=== PATIENT | male | born 1985 | race Caucasian/White ===

== ENCOUNTER 2019-08-05 21:57 | Emergency (ER) | payer BC ==
[2019-08-05] MEDS ORDERED: ALPRAZolam 1 MG Tab PO ONE (22:50)
--- NOTE | 2019-08-05 22:57 | EDM.PDOC ---
ED HPI GENERAL MEDICAL PROBLEM - General Chief Complaint: Behavioral/Psych Stated Complaint: PANIC ATTACKS PTSD Time Seen by Provider: 08/05/19 22:35 Source of Information: Reports: Patient, Old Records (2 visits from [facility] 08/02 and 08/03.), RN Notes Reviewed History Limitations: Reports: No Limitations - History of Present Illness INITIAL COMMENTS - FREE TEXT/NARRATIVE: Patient is a 33-year-old male who presents to the ED for the evaluation of panic attacks and his PTSD. He states that he developed PTSD after his service, he states that these are bad roughly for around 6 months but eventually got better. 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 He does have an appointment to see a provider [facility] [place] on Wednesday, and states he was seen at the [place] [facility] both on 08/02 and 08/03, he was given Ativan at the first visit, and subsequently Klonopin at the second visit, he states that he developed hives from both of these medications, he states that he tried taking Benadryl with both of these however this did not help the hives. He subsequently returned these to the [facility] in [place]. He has no medications at home for his acute anxiety. He states that when his anxiety is at its worse, he does try breathing techniques, he feels that he cannot breathe his mind starts racing , he feels anxious and starts pacing the room, and believes that he is going to . He states that he roughly had a panic attack 3 hours ago. He denies any other sick-like symptoms, fever/chills, shortness of breath, chest pain. He states that he is away from his family, and they reside in [place]. - Related Data Allergies Allergy/AdvReac Type Severity Reaction Status Date / Time lorazepam [From Ativan] Allergy Hives Verified 08/05/19 22:36 Home Meds: Home Meds ALPRAZolam [Alprazolam] 1 mg PO TID #12 tablet 08/05/19 [Rx] Past Medical History Psychiatric History: Reports: Anxiety, PTSD Social & Family History - Family History Family Medical History: Noncontributory - Tobacco Use Smoking Status *Q: Never Smoker - Caffeine Use Caffeine Use: Reports: None - Recreational Drug Use Recreational Drug Use: No ED ROS GENERAL - Review of Systems Review Of Systems: Comprehensive ROS is negative, except as noted in HPI. Psychiatric: Reports: Anxiety, Other (PTSD). Denies: Depression, Hallucinations , Homicidal Ideation, Suicidal Ideation ED EXAM, GENERAL - Physical Exam Exam: See Below Exam Limited By: No Limitations General Appearance: Alert, WD/WN, No Apparent Distress Eye Exam: Bilateral Eye: EOMI, Normal Inspection, PERRL Throat/Mouth: Normal Inspection, Normal Lips, Normal Teeth, Normal Gums, Normal Oropharynx, Normal Voice, No Airway Compromise Head: Atraumatic, Normocephalic Neck: Normal Inspection Respiratory/Chest: No Respiratory Distress, Lungs Clear, Normal Breath Sounds, No Accessory Muscle Use, Chest Non-Tender Cardiovascular: Normal Peripheral Pulses, Regular Rate, Rhythm, No Murmur GI/Abdominal: Normal Bowel Sounds, Soft, Non-Tender, No Distention, No Mass Extremities: Normal Inspection, Normal Capillary Refill Neurological: Alert, Oriented, Normal Cognition, No Motor/Sensory Deficits Psychiatric: Normal Affect, Normal Mood, Anxious (pt is pacing the room when I started to examine him) Skin Exam: Warm, Intact, Normal Color, No Rash Course - Vital Signs Last Recorded V/S: Last Vital Signs Temp 98.4 F 08/05/19 22:35 Pulse 99 08/05/19 22:35 Resp 16 08/05/19 22:35 BP 165/101 H 08/05/19 22:35 Pulse Ox 97 08/05/19 22:35 - Orders/Labs/Meds Meds: Medications Discontinued Medications Generic Name Dose Route Start Last Admin Trade Name Tino PRN Reason Stop Dose Admin Alprazolam 1 mg 08/05/19 22:50 08/05/19 22:58 Xanax PO 08/05/19 22:51 1 mg ONETIME ONE Administration - Re-Assessments/Exams Free Text/Narrative Re-Assessment/Exam: 08/05/19 23:01 Patient presents to the ED for the evaluation of anxiety and his PTSD. After an extensive discussion with this patient, and discussing his 2 previous visits from the 2 providers in [place]. I will provide him with 1 tablet of alprazolam for tonight use, and will get him a few tablets to get him through to Wednesday until he can be seen by the provider at the [facility]. I did discuss with him the importance of him to follow-up with the [facility], he verbalizes understanding. I do believe that he returned the medications back to the [facility] pharmacy however at this time there is no chance to actually verify this information. I did check [employer], and it does appear that he had filled a prescription for 9 tablets from the [facility] pharmacy on 08/03/2019. Departure - Departure Time of Disposition: 22:55 Disposition: Home, Self-Care 01 Condition: Fair Clinical Impression: Panic attack, PTSD (post-traumatic stress disorder) - Discharge Information *PRESCRIPTION DRUG MONITORING PROGRAM REVIEWED*: Yes *COPY OF PRESCRIPTION DRUG MONITORING REPORT IN PATIENT STEPHANIE: No Prescriptions: ALPRAZolam [Alprazolam] 1 mg PO TID #12 tablet Instructions: Panic Attack, [id number] Referrals: Joanne Barr MD [Primary Care Provider] - Forms: ED Department Discharge Additional Instructions: You were evaluated in the ER today regarding your panic attacks. After discussing options with you, you have been given a prescription for Xanax (alprazolam) 1 mg tablets 3 times daily as needed for panic attacks. You were given 1 tablet to take home for use tonight or tomorrow morning. The prescription was electronically prescribed to the [facility] pharmacy located near [facility] at [address] in [facility]. This pharmacy is open only from 12- tomorrow, 08/06/2019. 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 It is extremely important that you follow-up with your provider at the [facility] on Wednesday, as they will need to refill the prescriptions if they are deemed necessary for your anxiety treatment. Please return to the ER at any time however if your symptoms change or worsen. Sepsis Event Note - Evaluation Sepsis Screening Result: No Definite Risk - Focused Exam Date Exam was Performed: 08/07/19 Time Exam was Performed: 23:18
== END 2019-08-05 22:59 | disposition home or self-care (01) ==
LOC: JD.ED 21:57
DX: F41.0 Panic disorder [episodic paroxysmal anxiety] (principal); F43.10 Post-traumatic stress disorder, unspecified; Z88.8 Allergy status to other drugs, medicaments and biological substances
CPT/HCPCS: 99283; A9270

== ENCOUNTER 2019-08-19 12:36 | Emergency (ER) | payer BC ==
--- NOTE | 2019-08-19 13:11 | EDM.PDOCBH ---
ED HPI GENERAL MEDICAL PROBLEM - General Chief Complaint: Behavioral/Psych Stated Complaint: MEDS FOR PANIC ATTACKS NOT WORKING Time Seen by Provider: 08/19/19 12:51 Source of Information: Reports: Patient History Limitations: Reports: No Limitations - History of Present Illness INITIAL COMMENTS - FREE TEXT/NARRATIVE: Patient is a 34-year-old male who presents with complaints of chronic anxiety related to PTSD. Patient states that he suffered from significant anxiety and panic attacks after his service which was about 7 years ago. He states for number of years the symptoms resolved, however, recently the symptoms have returned. He states he is having at this time a panic attack every couple hours. His panic attacks last about 15-20 minutes and consist of hyperventilation and tremors. His last panic attack was immediately prior to coming to the ER. he was seen in this ER earlier this month and provided a short prescription for Xanax. Patient states that he did see Dr. Bruce this last Wednesday and was started on Prozac. She did offer to refill his Xanax, however he didn't think he would need it so he declined the offer. He states that he does not want to take the Xanax because it makes him tited, however the Prozac is not working for him. Patient states that he has an appointment with [facility] this . He denies any suicidal or homicidal thoughts. - Related Data Allergies Allergy/AdvReac Type Severity Reaction Status Date / Time lorazepam [From Ativan] Allergy Hives Verified 08/19/19 12:50 Home Meds: Home Meds ALPRAZolam [Alprazolam] 1 mg PO TID #12 tablet 08/05/19 [Rx] ALPRAZolam [Xanax] 1 mg PO TID PRN #18 tablet 08/19/19 [Rx] Past Medical History HEENT History: Reports: None Cardiovascular History: Reports: None Respiratory History: Reports: None Gastrointestinal History: Reports: None Genitourinary History: Reports: None Musculoskeletal History: Reports: None Neurological History: Reports: None Psychiatric History: Reports: Anxiety, PTSD Endocrine/Metabolic History: Reports: None Hematologic History: Reports: None Immunologic History: Reports: None Oncologic (Cancer) History: Reports: None Dermatologic History: Reports: None - Infectious Disease History Infectious Disease History: Reports: None Social & Family History - Family History Family Medical History: Noncontributory - Tobacco Use Smoking Status *Q: Never Smoker - Caffeine Use Caffeine Use: Reports: Coffee - Recreational Drug Use Recreational Drug Use: No ED ROS GENERAL - Review of Systems Review Of Systems: Comprehensive ROS is negative, except as noted in HPI. ED EXAM, BEHAVIORAL HEALTH - Physical Exam Exam: See Below Exam Limited By: No Limitations General Appearance: Alert, WD/WN, Anxious Respiratory/Chest: No Respiratory Distress, Lungs Clear, Normal Breath Sounds, No Accessory Muscle Use, Chest Non-Tender Cardiovascular: Normal Peripheral Pulses, Regular Rate, Rhythm, No Edema, No Gallop, No JVD, No Murmur, No Rub Neurological: Alert, Normal Mood/Affect, CN II-XII Intact, Normal Cognition, Normal Gait, Normal Reflexes, No Motor/Sensory Deficits, Oriented x 3 Psychiatric: Alert, Oriented, Other (slightly tremoring and visibly anxious. Cooperative.). No: Suicidal Thoughts Skin Exam: Warm, Dry, Intact, Normal color, No rash COURSE, BEHAVIORAL HEALTH COMP - Course Vital Signs: Last Vital Signs Temp 98.7 F 08/19/19 12:48 Pulse 122 H 08/19/19 12:48 Resp 16 08/19/19 12:48 BP 157/92 H 08/19/19 12:48 Pulse Ox 99 08/19/19 12:48 Re-Assessment/Re-Exam: on exam, patient is cooperative but visibly anxious and slightly tremoring. He states that he saw Dr. Bruce on Wednesday and was started on Prozac. I did discuss with him that it takes 3-4 weeks for Prozac to become effective and that occasionally during that period of adjustment, his symptoms may actually worsen before getting better. He states that he was not aware of this and that if he would've known he would have accepted the offer for the refill on his Xanax until the medication started working. I will write him a prescription for Xanax 1 mg 3 times a day when necessary with enough tabs to get him through until he sees the [facility] on . I did discuss with him that he will likely need this medication at least for the next couple weeks until the Prozac starts working for him, but that it is important for him to follow-up with the [facility] clinic as scheduled on . Discharge instructions as noted. Departure - Departure Time of Disposition: 13:15 Disposition: Home, Self-Care 01 Condition: Fair Clinical Impression: Panic disorder, Anxiety - Discharge Information *PRESCRIPTION DRUG MONITORING PROGRAM REVIEWED*: Yes *COPY OF PRESCRIPTION DRUG MONITORING REPORT IN PATIENT STEPHANIE: No Prescriptions: ALPRAZolam [Xanax] 1 mg PO TID PRN #18 tablet PRN Reason: Anxiety Instructions: Panic Attack, [id number] Referrals: Saloni Bruce MD [Primary Care Provider] - Forms: ED Department Discharge Additional Instructions: You were seen in the emergency department today for recurrent panic attacks. As we discussed, it will take 3-4 weeks for the [facility] that you started this last Wednesday to start working for you. During this transition period, you may continue to have anxiety and panic attacks, however, this should eventually improve as the medication starts taking effect. I have sent a prescription for Xanax 1 mg 3 times daily as needed for anxiety and panic attacks to [facility]. You have been provided with enough tablets to get you through until your appointment on with the [facility]. I recommend that you keep this appointment to discuss ongoing treatment of your anxiety and panic attacks. If you should experience any new or worsening symptoms, please do not hesitate to return to the emergency department. Sepsis Event Note - Evaluation Sepsis Screening Result: No Definite Risk - Focused Exam Vital Signs: Vital Signs Temp Pulse Resp BP Pulse Ox 08/19/19 12:48 98.7 F 122 H 16 157/92 H 99 Date Exam was Performed: 08/19/19 Time Exam was Performed: 16:31
== END 2019-08-19 13:27 | disposition home or self-care (01) ==
LOC: JD.ED 12:36
DX: F41.0 Panic disorder [episodic paroxysmal anxiety] (principal); Z88.8 Allergy status to other drugs, medicaments and biological substances; Z79.899 Other long term (current) drug therapy
CPT/HCPCS: 99283

== ENCOUNTER 2019-09-10 17:46 | Emergency (ER) | payer SELFPAY ==
[2019-09-10] MEDS ORDERED: ALPRAZolam 1 MG Tab PO ONE (18:11)
--- NOTE | 2019-09-10 18:16 | EDM.PDOCBH ---
ED HPI GENERAL MEDICAL PROBLEM - General Chief Complaint: Behavioral/Psych Stated Complaint: PANIC ATTACK Time Seen by Provider: 09/10/19 17:58 Source of Information: Reports: Patient History Limitations: Reports: No Limitations - History of Present Illness INITIAL COMMENTS - FREE TEXT/NARRATIVE: Patient is a 34-year-old male who presents with complaints of frequent panic attacks. He has PTSD related to his service. After he got out of the service he had similar episodes, however he was free from symptoms for about 7 years. A few months back, he started having the panic attacks again. I saw him in this ER on 11 August for similar complaints. At that time he had just been started on Prozac by Dr. Bruce. He states since that time he has still had some intermittent anxiety attacks but has not needed more Xanax than I had initially prescribed him on that date. He saw Dr. Bruce last week and his dose of Prozac was increased to 30 mg twice daily. She offered to refill his Xanax stating that he may need to be on that long-term, however he declined because he still had 4 or 5 tabs left that I had filled for him. He he is now out of the Xanax, however he continues to have these panic attacks about twice a day. His symptoms have caused him to miss work. States he does not like to take the Xanax because it makes him sleepy, however there are times it he cannot function without it. [facility] and he has been advised that they will be able to write prescriptions as well. He denies any homicidal or suicidal ideation. - Related Data Allergies Allergy/AdvReac Type Severity Reaction Status Date / Time lorazepam [From Ativan] Allergy Hives Verified 09/10/19 18:00 Home Meds: Home Meds ALPRAZolam [Xanax] 1 mg PO TID PRN #18 tablet 09/10/19 [Rx] FLUoxetine HCl [Prozac] 30 mg PO BID 09/10/19 [History] Past Medical History - Past Health History Medical/Surgical History: Denies Medical/Surgical History HEENT History: Reports: None Cardiovascular History: Reports: None Respiratory History: Reports: None Gastrointestinal History: Reports: None Genitourinary History: Reports: None Musculoskeletal History: Reports: None Neurological History: Reports: None Psychiatric History: Reports: Anxiety, Panic Attack, PTSD Endocrine/Metabolic History: Reports: None Hematologic History: Reports: None Immunologic History: Reports: None Oncologic (Cancer) History: Reports: None Dermatologic History: Reports: None - Infectious Disease History Infectious Disease History: Reports: None Social & Family History - Family History Family Medical History: Noncontributory - Tobacco Use Smoking Status *Q: Never Smoker - Caffeine Use Caffeine Use: Reports: None - Recreational Drug Use Recreational Drug Use: No ED ROS GENERAL - Review of Systems Review Of Systems: Comprehensive ROS is negative, except as noted in HPI. ED EXAM, BEHAVIORAL HEALTH - Physical Exam Exam: See Below Exam Limited By: No Limitations General Appearance: Alert, WD/WN, Anxious Respiratory/Chest: No Respiratory Distress, Lungs Clear, Normal Breath Sounds, No Accessory Muscle Use, Chest Non-Tender Cardiovascular: Normal Peripheral Pulses, Regular Rate, Rhythm, No Edema, No Gallop, No JVD, No Murmur, No Rub Neurological: Alert, Normal Mood/Affect, CN II-XII Intact, Normal Cognition, Normal Gait, Normal Reflexes, No Motor/Sensory Deficits, Oriented x 3 Psychiatric: Alert, Normal Affect, Normal Cognition, Normal Mood, Oriented Skin Exam: Warm, Dry, Intact, Normal color, No rash COURSE, BEHAVIORAL HEALTH COMP - Course Vital Signs: Last Vital Signs Temp 98.6 F 09/10/19 17:57 Pulse 100 09/10/19 17:57 Resp 15 09/10/19 17:57 BP 164/96 H 09/10/19 17:57 Pulse Ox 100 09/10/19 17:57 Orders, Labs, Meds: Active Orders 24 hr Category Date Time Status ALPRAZolam [Xanax] Med 09/10/19 18:11 Once 1 mg PO ONETIME ONE Medication Orders Alprazolam (Xanax) 1 mg PO ONETIME ONE Stop: 09/10/19 18:12 Medications Generic Name Dose Route Start Last Admin Trade Name Freq PRN Reason Stop Dose Admin Alprazolam 1 mg 09/10/19 18:11 Xanax PO 09/10/19 18:12 ONETIME ONE Re-Assessment/Re-Exam: Patient presents with complaints of daily panic attacks. He has been gradually increasing his dose of Prozac, however continues to have breakthrough symptoms. Discussed with him that while his medications are being titrated until he becomes a therapeutic level, it would be beneficial for him to have Xanax on hand. Told him that he should only use the medication when he has 1 of the acute attacks. Patient does not want to be on Xanax long-term. I discussed with him that ideally he should find that he has to use them less and less as his long-term medications begin to work. I will give him Xanax 1 mg p.o. while in the emergency department today. I have also provided a prescription for 18 tabs to be used 3 times a day as needed for acute anxiety attacks. Discharge instructions as documented. Departure - Departure Time of Disposition: 18:18 Disposition: Home, Self-Care 01 Condition: Fair Clinical Impression: Panic disorder - Discharge Information *PRESCRIPTION DRUG MONITORING PROGRAM REVIEWED*: Yes *COPY OF PRESCRIPTION DRUG MONITORING REPORT IN PATIENT STEPHANIE: No Prescriptions: ALPRAZolam [Xanax] 1 mg PO TID PRN #18 tablet PRN Reason: Anxiety Instructions: Panic Attack, [id number], Living With Anxiety Referrals: Saloni Bruce MD [Primary Care Provider] - Additional Instructions: You were seen in the emergency department for daily panic attacks. As we discussed, you may need to continue to use Xanax as needed for breakthrough anxiety until your daily, long-term medications reach a therapeutic level. I would recommend that you keep Xanax on hand for use as needed, and ideally you will find that as time goes on you will need to use them less and less. You were given 1 tablet of Xanax 1 mg while in the emergency department today. A prescription has been written for additional Xanax to get you through until [facility]. Use this medication as prescribed as needed for anxiety. Do not drive or operate heavy machinery after taking this medication. If you should experience any worsening symptoms, please do not hesitate to return to the emergency department. Sepsis Event Note - Evaluation Sepsis Screening Result: No Definite Risk - Focused Exam Vital Signs: Vital Signs Temp Pulse Resp BP Pulse Ox 09/10/19 17:57 98.6 F 100 15 164/96 H 100 Date Exam was Performed: 09/10/19 Time Exam was Performed: 18:11 - My Orders Last 24 Hours: My Active Orders 09/10/19 18:11 ALPRAZolam [Xanax] 1 mg PO ONETIME ONE - Assessment/Plan Last 24 Hours: My Active Orders 09/10/19 18:11 ALPRAZolam [Xanax] 1 mg PO ONETIME ONE
== END 2019-09-10 18:31 | disposition home or self-care (01) ==
LOC: JD.ED 17:46
DX: F41.0 Panic disorder [episodic paroxysmal anxiety] (principal); F41.9 Anxiety disorder, unspecified; F43.10 Post-traumatic stress disorder, unspecified; Z88.8 Allergy status to other drugs, medicaments and biological substances; Z79.899 Other long term (current) drug therapy
CPT/HCPCS: 99283; A9270

== ENCOUNTER 2019-09-18 01:47 | Emergency (ER) | payer SELFPAY ==
[2019-09-18] MEDS ORDERED: ALPRAZolam 1 MG Tab PO ONE (02:20)
--- NOTE | 2019-09-18 02:24 | EDM.PDOCBH ---
ED HPI GENERAL MEDICAL PROBLEM - General Chief Complaint: Behavioral/Psych Stated Complaint: PANIC ATTACKS WORSE WITH MEDS Time Seen by Provider: 09/18/19 02:18 Source of Information: Reports: Patient History Limitations: Reports: No Limitations - History of Present Illness INITIAL COMMENTS - FREE TEXT/NARRATIVE: 34-year-old male presents to the ED with generalized anxiety disorder and recurrent panic attacks for the last several weeks. 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 He did 2 tours in [place] and one in [place] and when he got back to [place] he started to have symptoms of posttraumatic stress disorder and started to suffer from severe panic attacks. These were particularly bad about 5 years ago and he went on medication which was Xanax 2 mg twice daily and Prozac 90 mg once daily for period of about a year and a half and then his symptoms abated and he was able to get off medication. Unfortunately symptoms of panic disorder and anxiety started to come back about 2 and half months ago and have been getting worse. He has been seen by multitude of physicians including a couple of visits to the ED in this regard. He has followed up with the [facility] physician as well. One has been reluctant to return him to his previous dose of Xanax out of fear of addiction to the medication. He states that the current dose of Xanax that he is on which he ran out of yesterday is not effective. Was taking 1 mg 3 times daily and his Prozac dose has been recently increased. He has an appointment to follow-up with his [facility] physician in [place] where he is from in about 10 days time. He works 3 months on and then has a month off. His month off starts next week Wednesday. But unable to sleep tonight due to generalized anxiety. Panic attacks are that of feeling his heart racing a sense of doom with a pressure in his throat and sometimes chest pains. He also feels tremulous throughout his body. He has had no nausea vomiting or diarrhea. Onset: Unknown/Unsure (Has been having gradually worsening symptoms of generalized anxiety disorder with panic attacks for last 2 and half months.) Onset Date: 07/04/19 (He believes his symptoms started back in early June.) Duration: Week(s):, Getting Worse Location: Reports: Generalized Quality: Reports: Other (Her present illness current panic attacks and generalized anxiety disorder with sleep disruption and inability to sometimes function in the workplace) Severity: Moderate Improves with: Reports: Other (Xanax helps for the most part bring it under control.) Worsens with: Reports: Other (Stressful environment) Context: Reports: Other. Denies: Activity, Exercise, Lifting, Sick Contact, Trauma Associated Symptoms: Reports: Chest Pain, Diaphoresis, Loss of Appetite, Malaise , Shortness of Breath, Weakness, Other (Sense of doom with pressure in the throat and palpitations). Denies: Confusion, Cough (Times chest pains), cough w sputum, Fever/Chills, Headaches, Nausea/Vomiting (Sometimes diaphoresis), Rash , Seizure, Syncope Treatments EMTS: Reports: Other (see below) (Has been taking a gradually increasing dose of Prozac and is currently up to 90 mg daily. He has been taking alprazolam 1 mg 3 times daily without good relief.) - Related Data Allergies Allergy/AdvReac Type Severity Reaction Status Date / Time lorazepam [From Ativan] Allergy Hives Verified 09/18/19 01:55 Home Meds: Home Meds ALPRAZolam [Xanax] 1 mg PO TID PRN #18 tablet 09/10/19 [Rx] FLUoxetine HCl [Prozac] 90 mg PO DAILY 09/10/19 [History] ALPRAZolam [Xanax] 2 mg PO BID #60 tablet 09/18/19 [Rx] Past Medical History - Past Health History Medical/Surgical History: Denies Medical/Surgical History HEENT History: Reports: None Cardiovascular History: Reports: None Respiratory History: Reports: None Gastrointestinal History: Reports: None Genitourinary History: Reports: None Musculoskeletal History: Reports: None Neurological History: Reports: None Psychiatric History: Reports: Anxiety (Neurolysed anxiety disorder.), Panic Attack, PTSD, Other (See Below) (Patient is an [place] vet) Endocrine/Metabolic History: Reports: None Hematologic History: Reports: None Immunologic History: Reports: None Oncologic (Cancer) History: Reports: None Dermatologic History: Reports: None - Infectious Disease History Infectious Disease History: Reports: None Social & Family History - Family History Family Medical History: Noncontributory - Tobacco Use Smoking Status *Q: Never Smoker - Caffeine Use Caffeine Use: Reports: None - Recreational Drug Use Recreational Drug Use: No - Living Situation & Occupation Living situation: Reports: Occupation: Employed ED ROS GENERAL - Review of Systems Review Of Systems: See Below Constitutional: Reports: Malaise, Weakness, Fatigue, Decreased Appetite (Not being able to sleep). Denies: Fever, Chills HEENT: Reports: No Symptoms Respiratory: Reports: Shortness of Breath. Denies: Wheezing, Pleuritic Chest Pain, Cough, Sputum, Hemoptysis Cardiovascular: Reports: Chest Pain (Central chest pains), Blood Pressure Problem, Lightheadedness (.), Palpitations. Denies: Claudication (Pressure goes up when he is anxious.), Orthopnea Endocrine: Reports: Fatigue GI/Abdominal: Reports: Decreased Appetite : Reports: No Symptoms Musculoskeletal: Reports: Back Pain Skin: Reports: No Symptoms Neurological: Reports: Dizziness (Sometimes occurs with panic attack), Paresthesia, Tremors (Times numbness and tingling in his upper extremities and periorally.) Psychiatric: Reports: Anxiety, Other Hematologic/Lymphatic: Reports: No Symptoms (Acutely disrupted sleep pattern) Immunologic: Reports: No Symptoms ED EXAM, BEHAVIORAL HEALTH - Physical Exam Exam: See Below Exam Limited By: No Limitations General Appearance: Alert, WD/WN, Anxious (Very anxious at the time I seen him.) , Moderate Distress, Other (Temperature is 36.8. Heart rate was 102 and sinus respiratory 16 O2 sats are 99% on room air. BP is 140/99) Eye Exam: Bilateral Eye: Normal Inspection Throat/Mouth: Normal Inspection, Normal Lips, Normal Oropharynx, Other Head: Atraumatic, Normocephalic Neck: Normal Inspection, Supple, Non-Tender, Full Range of Motion. No: Lymphadenopathy (L), Lymphadenopathy (R) Respiratory/Chest: No Respiratory Distress, Lungs Clear, Normal Breath Sounds, No Accessory Muscle Use Cardiovascular: Regular Rate, Rhythm (Mild tachycardia.), No Edema, No Gallop, No JVD, No Murmur, No Rub, Tachycardia GI/Abdominal: Normal Bowel Sounds, Soft, Non-Tender, No Organomegaly, No Abnormal Bruit, No Mass, Pelvis Stable Back Exam: Normal Inspection, Full Range of Motion. No: CVA Tenderness (L), CVA Tenderness (R) Extremities: Normal Inspection, Normal Range of Motion, Non-Tender, No Pedal Edema Neurological: Alert, CN II-XII Intact, Normal Cognition, Normal Gait, No Motor/ Sensory Deficits, Oriented x 3. No: Normal Mood/Affect (Anxious) Psychiatric: Alert, Normal Cognition, Oriented, Restless, Other. No: Normal Mood, Uncooperative, Withdrawn, Flight of Ideas, Homicidal Thoughts, Phobic, Suicidal Plan, Suicidal Thoughts, Tangential Thoughts, Auditory Hallucinations, Visual Hallucinations, Grandiose Thoughts, Pressured Speech Skin Exam: Warm (Very anxious.), Dry, Intact, Normal color, No rash COURSE, BEHAVIORAL HEALTH COMP - Course Vital Signs: Last Vital Signs Temp 36.8 C 09/18/19 01:53 Pulse 102 H 09/18/19 01:53 Resp 16 09/18/19 01:53 BP 140/99 H 09/18/19 01:53 Pulse Ox 99 09/18/19 01:53 Orders, Labs, Meds: Medications Discontinued Medications Generic Name Dose Route Start Last Admin Trade Name Freq PRN Reason Stop Dose Admin Alprazolam 2 mg 09/18/19 02:20 09/18/19 02:31 Xanax PO 09/18/19 02:21 2 mg ONETIME ONE Administration Re-Assessment/Re-Exam: 34-year-old male presents to the ED due to signs and symptoms of generalized anxiety disorder and disrupted sleep pattern. Patient has PTSD from being a vet doing 2 tours in [place] and 1 tour in [place] in his younger years. When he returned home he developed signs and symptoms of posttraumatic stress disorder and with generalized anxiety disorder with panic attacks. 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 He works 3 months on and then gets off for 1 month. He started having symptoms of generalized anxiety with panic attacks in the early part of June and has been struggling with his symptoms gradually worsening over time. He had a similar occurrence over 5 years ago and was on Prozac 90 mg daily and Xanax 2 mg in the morning and 2 mg at bedtime with good relief of symptoms and after about a year and a half his symptoms went away. He enjoyed about a 5-year reprieve from symptoms until they returned last June. Is having trouble getting placed back on the higher dose of Xanax due to fear of addiction potential. He ran out of Xanax yesterday and he was taking 1 mg 3 times daily but feels it is not enough and he is not able to relax enough to sleep which is interfering with his ability to work. He takes 2 mg first thing in the morning when anxiety symptoms usually are the worst and then 2 mg at bedtime to ensure a good night sleep. The plan is to return him to the 2 mg twice daily dosing of Xanax and he is already on 90 mg of Prozac. I will write him a prescription for a month supply and he will be given 2 mg of Xanax now so that he may get some sleep tonight. He does not work today but does work tomorrow. He will be off his 3-month work deployment in another week and will be going back to [place] and has already arranged to see his previous doctor at the [facility] in [place]. Departure - Departure Time of Disposition: 02:21 Disposition: Home, Self-Care 01 Condition: Fair Clinical Impression: Panic attacks, PTSD (post-traumatic stress disorder) - Discharge Information *PRESCRIPTION DRUG MONITORING PROGRAM REVIEWED*: Not Applicable *COPY OF PRESCRIPTION DRUG MONITORING REPORT IN PATIENT STEPHANIE: Not Applicable Prescriptions: ALPRAZolam [Xanax] 2 mg PO BID #60 tablet Referrals: Joanne Barr MD [Primary Care Provider] - Forms: ED Department Discharge Additional Instructions: Evaluation in the emergency room tonight in regards to inability to sleep due to generalized anxiety and recurrent panic attacks which have been going on for several now. You had a previous similar bout of panic attacks associated with PTSD 5 years ago which was treated similarly with high-dose Xanax 2 mg first in the morning and bedtime to aid sleep and Prozac 90 mg daily. I certainly agree with return to that treatment plan as it was certainly effective for you. Therefore written a prescription for Xanax 2 mg twice daily for the next month. Given 2 mg of Xanax in the ED tonight so that you might get some sleep. It takes a good hour to start to work well. Sepsis Event Note - Evaluation Sepsis Screening Result: No Definite Risk - Focused Exam Vital Signs: Vital Signs Temp Pulse Resp BP Pulse Ox 09/18/19 01:53 36.8 C 102 H 16 140/99 H 99 Date Exam was Performed: 09/18/19 Time Exam was Performed: 02:33
== END 2019-09-18 02:37 | disposition home or self-care (01) ==
LOC: JD.ED 01:47
DX: F41.0 Panic disorder [episodic paroxysmal anxiety] (principal); F43.10 Post-traumatic stress disorder, unspecified; Z88.8 Allergy status to other drugs, medicaments and biological substances; Z79.899 Other long term (current) drug therapy
CPT/HCPCS: 99283; A9270

== ENCOUNTER 2019-10-14 16:29 | Emergency (ER) | payer SELFPAY ==
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
== END 2019-10-14 17:18 | disposition home or self-care (01) ==
LOC: JD.ED 16:29
DX: F41.9 Anxiety disorder, unspecified (principal); F32.9 Major depressive disorder, single episode, unspecified; Z76.0 Encounter for issue of repeat prescription; Z88.0 Allergy status to penicillin
CPT/HCPCS: 99281; 99282

== ENCOUNTER 2019-10-23 20:04 | Emergency (ER) | payer SELFPAY ==
--- NOTE | 2019-10-23 20:33 | EDM.PDOC ---
ED HPI GENERAL MEDICAL PROBLEM - General Chief Complaint: General Stated Complaint: NEED MEDS REFILL Time Seen by Provider: 10/23/19 20:18 Source of Information: Reports: Patient History Limitations: Reports: No Limitations - History of Present Illness INITIAL COMMENTS - FREE TEXT/NARRATIVE: Patient is a 34-year-old male who presents to the emergency department with request for medication refill. He has an extensive history of anxiety, depression, with PTSD related to his service. He has been seen in our emergency department on a number of occasions with similar requests. The most recent one was approximately 10 days ago. After that visit his plan was to follow-up with the [facility] in [place] as that is where he lives. He states that when he was home on his leave he attempted to go to an appointment [facility] but was told that they had much sicker patients to deal with with a Covid19 pandemic and that they were unable to see him. His then got him in with a different provider who took him off of his Prozac and recommended that he use marijuana. He was reluctant to do so because he has never used drugs and does not want to start. After this the provider told him to stay off his Prozac and started him on Atarax 25 mg every 6 hours. Patient stated that he tried this and within a couple days his anxiety attacks returned. He has since put himself back on the Prozac which she states does help, however without the Xanax that he was taking previously he still has the panic attacks. He is trying to find a provider locally that would be able to manage his anxiety on an ongoing basis, but states that he was not sure where he should go. - Related Data Allergies Allergy/AdvReac Type Severity Reaction Status Date / Time lorazepam [From Ativan] Allergy Hives Verified 10/14/19 16:42 Home Meds: Home Meds FLUoxetine HCl [Prozac] 90 mg PO DAILY 09/10/19 [History] ALPRAZolam 2 mg PO BID 10/23/19 [History] ALPRAZolam [Xanax] 2 mg PO BID #20 tablet 10/23/19 [Rx] Past Medical History - Past Health History Medical/Surgical History: Denies Medical/Surgical History HEENT History: Reports: None Cardiovascular History: Reports: None Respiratory History: Reports: None Gastrointestinal History: Reports: None Genitourinary History: Reports: None Musculoskeletal History: Reports: None Neurological History: Reports: None Psychiatric History: Reports: Anxiety, Panic Attack, PTSD, Other (See Below) Endocrine/Metabolic History: Reports: None Hematologic History: Reports: None Immunologic History: Reports: None Oncologic (Cancer) History: Reports: None Dermatologic History: Reports: None - Infectious Disease History Infectious Disease History: Reports: None Social & Family History - Family History Family Medical History: Noncontributory - Caffeine Use Caffeine Use: Reports: None - Living Situation & Occupation Living situation: Reports: Occupation: Employed ED ROS GENERAL - Review of Systems Review Of Systems: Comprehensive ROS is negative, except as noted in HPI. ED EXAM, GENERAL - Physical Exam Exam: See Below Exam Limited By: No Limitations General Appearance: Alert, WD/WN, No Apparent Distress Respiratory/Chest: No Respiratory Distress, Lungs Clear, Normal Breath Sounds, No Accessory Muscle Use, Chest Non-Tender Cardiovascular: Normal Peripheral Pulses, Regular Rate, Rhythm, No Edema, No Gallop, No JVD, No Murmur, No Rub Neurological: Alert, Oriented, CN II-XII Intact, Normal Cognition, Normal Gait, Normal Reflexes, No Motor/Sensory Deficits Psychiatric: Normal Affect, Normal Mood Skin Exam: Warm, Dry, Intact, Normal Color, No Rash Course - Vital Signs Last Recorded V/S: Last Vital Signs Temp 98.4 F 10/23/19 20:24 Pulse 120 H 10/23/19 20:24 Resp 20 10/23/19 20:24 BP 142/92 H 10/23/19 20:24 Pulse Ox 99 10/23/19 20:24 - Re-Assessments/Exams Free Text/Narrative Re-Assessment/Exam: 10/23/19 20:51 I had a long discussion with the patient with regards to his panic disorders and the importance of having a primary care provider with ongoing follow-up. Discussed that in the emergency department we cannot habitually refill medications. He requested information on how he can set up an appointment with somebody in our facility for ongoing management. I do believe that the patient does have a panic disorder and based on the FEATH[employer] MIXER it does not appear that he has been abusing his Xanax. I advised that I will give him a 10-day refill of his Xanax, but that from there he would need to follow-up in the clinic for ongoing management and medication refills. I provided him with a list of our clinic providers as well as the phone number to call tomorrow morning to schedule an appointment. He is in agreement with this plan and states that he will call first thing in the morning to set up an appointment. Departure - Departure Time of Disposition: 20:54 Disposition: Home, Self-Care 01 Condition: Fair Clinical Impression: Anxiety, PTSD (post-traumatic stress disorder) - Discharge Information *PRESCRIPTION DRUG MONITORING PROGRAM REVIEWED*: Yes *COPY OF PRESCRIPTION DRUG MONITORING REPORT IN PATIENT STEPHANIE: No Prescriptions: ALPRAZolam [Xanax] 2 mg PO BID #20 tablet Instructions: Post-Traumatic Stress Disorder, Adult Forms: ED Department Discharge Additional Instructions: You were seen in the emergency department today with a request for a refill of your anxiety medications. As we discussed, it is essential that you establish a primary care provider who can manage your anxiety on an ongoing basis. Unfortunately, the emergency department cannot refill your medications on an ongoing basis. I have electronically sent a 10-day supply of your Xanax. You been provided with a number to schedule appointment and a list of providers in our clinic who would be able to assist you with ongoing management of your anxiety. Recommend that you call for seen tomorrow morning to set up an appointment. Return to the ER as needed. Sepsis Event Note - Evaluation Sepsis Screening Result: No Definite Risk - Focused Exam Vital Signs: Vital Signs Temp Pulse Resp BP Pulse Ox 10/23/19 20:24 98.4 F 120 H 20 142/92 H 99 Date Exam was Performed: 10/23/19 Time Exam was Performed: 20:47
== END 2019-10-23 21:07 | disposition home or self-care (01) ==
LOC: JD.ED 20:04
DX: F41.9 Anxiety disorder, unspecified (principal); F43.10 Post-traumatic stress disorder, unspecified; Z88.8 Allergy status to other drugs, medicaments and biological substances; Z79.899 Other long term (current) drug therapy
CPT/HCPCS: 99281